=== PATIENT | female | born 1965 | race Caucasian/White ===

== ENCOUNTER 2019-02-23 15:40 | Emergency (ER) | payer OTHER ==
[~2019-02-23] VITALS: Ht 160 cm; Wt 57.2 kg
[2019-02-23 15:55] VITALS: BP 150/66
--- NOTE | 2019-02-23 16:10 | NUR ---
C/O DIZZINESS/WEAKNESS, N/V X4 DAYS AFTER FALLING AND HITTING HEAD ON CONCRETE. THERE WAS A SMALL BUMP ON PT'S HEAD AFTER PT FELL. PT PASSED OUT AND SON CALLED 911, SENT PT TO [facility] .FSBS 82 AT THIS TIME. PT APPEARS DROWSY. PERRLA 4MM HX: COLITIS, ANXIETY RX: BENTYL, LOMOTIL, XANAX; SKIN IS PINK/WARM/DRY; AWAKE, ALERT.LUNGS CLEAR BL; HR EVEN AND REGULAR; PT DENIES ANY FEVER, CP, SOB, OR COUGH AT THIS TIME; PATIENT STATES PAIN OF 0/10 AT THIS TIME; VSS; PATIENT POSITIONED FOR COMFORT; HOB ELEVATED; BEDRAILS UP X2; BED DOWN. ER MD MADE AWARE OF PT STATUS.FAMILY AT BEDSIDE.
[2019-02-23] MEDS ORDERED: DIAZEPAM 5 MG TAB PO ONE (17:50)
--- NOTE | 2019-02-23 18:11 | NUR ---
PT DOES NOT WANT TO TAKE VALIUM. NOTIFIED DR. SCOTT.
--- NOTE | 2019-02-23 18:30 | NUR ---
PT LEFT WITHOUT BEING DISCHARGE.
== END 2019-02-23 18:30 | disposition left against medical advice (07) ==
LOC: MED 15:40
DX: R42 Dizziness and giddiness (principal); Z90.49 Acquired absence of other specified parts of digestive tract
CPT/HCPCS: 81002; 81025; 99282